=== PATIENT | female | born 1955 | race Caucasian/White ===

== ENCOUNTER 2016-07-05 19:58 | Observation (INO) | payer OTHER ==
--- NOTE | ~2016-07-05 | DS ---
Discharge Summary [facility] [address] [facility] [place]. [address] NAME: FATIMAH CAZARES : 59 STATUS : DIS IN PAT#: [id number] AGE: 61 ADM/REG DATE : 07/05/16 MR#: [id number] REPORT SERV DATE: 07/08/16 DICTATED BY: ZACH IZAGUIRRE DATE: 07/07/16 REPORT STATUS : Draft TRANSCRIBED BY: MODLola DATE: 07/07/16 ADMISSION DATE: 07/05/2016 DISCHARGE DATE: 07/07/2016 DISCHARGE DIAGNOSES: Includes: 1. TIA or transient ischemic attack with some left facial paresthesias. 2. Headaches. 3. Tobacco abuse. 4. Obstructive sleep apnea with current CPAP therapy nightly. 5. Hypertension. 6. Upper respiratory infection. 7. History of CVA. DISCHARGE MEDICATIONS: Aspirin 325 mg daily, Voltaren gel topically p.r.n. to affected areas, atenolol 25 mg daily, Lipitor 80 mg at bedtime, Wellbutrin XL 300 mg daily, vitamin B12 1000 mcg daily, Topamax 25 mg daily new prescription written for this, multivitamin tablet one daily, red yeast 1 capsule daily. HISTORY OF PRESENT ILLNESS: A pleasant 61-year-old female who presented with face numbness and headache at the [facility] Emergency Room. Please see initial H and P of Dr. Caio Foreman. The patient is admitted to the Hospitalist Service for further evaluation and treatment. CONSULTANTS DURING THIS ADMISSION: Include Neurology Services Dr. Willard Wheeler. PROCEDURES AND IMAGING DURING THIS ADMISSION: Include CT of the brain that was unremarkable. No acute intracranial hemorrhage or otherwise acute pathology. A carotid ultrasound showing no significant plaque within the carotid arteries, and no significant stenosis. MRI of the brain showing no evidence of acute infarction but nonspecific gliotic changes right and left centrum semiovale, most likely sales donor recruitment representative of small vessel ischemic events, microangiopathic leukoencephalopathy. An echocardiogram performed showed an ejection fraction of 55% to 60%, dilated left atrium, mild aortic valve regurgitation, mild mitral valve regurgitation. CONTINUATION OF HOSPITAL COURSE: The patient's symptoms of headache and paresthesias began to resolve by the following day. Her aspirin therapy was increased to 325 mg, her Lipitor was increased to 80 mg daily. She had the above described imaging, was seen and evaluated by Neurology Services. She was seen by Physical Therapy, Occupational Therapy, and Speech Therapy during this admission who did not recommend any acute PT needs at this time. Significant counseling was given on the need for tobacco cessation, and the patient was felt safe for discharge home on 07/07/2016 with the above medicines to follow up with her primary care in approximately 7-10 days. Questions were answered at bedside. She was in agreement with this plan going forward. Please note that greater than 30 minutes was spent on this discharge for medication teaching, followup planning, and further disposition. Discharge Summary [address] [address] NAME: FATIMAH CAZARES : 59 STATUS : DIS IN PAT#: [id number] AGE: 61 ADM/REG DATE : 07/05/16 MR#: [id number] REPORT SERV DATE: 07/08/16 DICTATED BY: ZACH IZAGUIRRE DATE: 07/07/16 REPORT STATUS : Draft TRANSCRIBED BY: PAMELA DATE: 07/07/16 ESTEBAN/PAMELA Zach Izaguirre NP / [id number] CC: Turner Araujo MD
--- NOTE | ~2016-07-05 | CN ---
Consultation Report [facility] [address] [place]. [address] NAME: FATIMAH CAZARES : 59 STATUS : ADM IN PAT#: [id number] AGE: 61 ADM/REG DATE : 07/05/16 MR#: [id number] REPORT SERV DATE: 07/06/16 DICTATED BY: VINCENZO WHEELER DATE: 07/05/16 REPORT STATUS : Draft TRANSCRIBED BY: MODL DATE: 07/05/16 [facility] NEUROLOGY CONSULTATION DATE OF CONSULTATION: REQUESTING PHYSICIAN: Dr. Cristobal in the [facility] Emergency Room. HISTORY OF PRESENT ILLNESS: This patient was called out as a Stroke Alert that was my joint decision with Dr. Cristobal after we initially discussed the case. She is a 61-year-old female with a past medical history significant for stroke, and vascular risk factors including hypertension, hyperlipidemia, and smoking. Her previous stroke was treated at [facility] in 08/2015 and left her with residual left facial numbness and left mouth droop. Interestingly, the family thinks there was some debate when she was in the hospital as to whether or not she had a stroke, and they cannot specifically tell me what the exact MRI findings were. She says that later her primary care physician told her that she definitely had a stroke. Symptoms relevant to her presentation this evening include worsening left facial numbness compared to baseline, headache, and nausea, all of which started at about 1800 hours on 07/05/2016. Accordingly, she came to the ER for evaluation. At the time that I spoke to her, family provided commentary that her left facial droop did not look any different than baseline. She also at that time mentioned that she had some scotomata consisting of a shimmery-type quality to her vision, this has improved. She thinks maybe the left facial numbness is also improved, but not all the way back to baseline. She does still have a headache. REVIEW OF SYSTEMS: A complete review of systems was obtained and is negative other than stated in the history of present illness. MEDICATIONS: Aspirin 81 mg, atenolol, atorvastatin, bupropion ER, B12, diclofenac topical gel, multivitamin, Bactrim. Incidentally, Bactrim is a new medication that she has just started on Sunday and she feels hot and flushed every time she takes it. ALLERGIES: NONE. FAMILY HISTORY: Positive for cardiovascular and cerebrovascular disease. SOCIAL HISTORY: She is a smoker. She works. No alcohol or drugs. PHYSICAL EXAMINATION: VITAL SIGNS: Blood pressure 108/63, heart rate 68, respiratory rate 19, oxygen saturation 97% on room air. GENERAL: In no acute distress. HEAD EARS, EYES, NOSE, AND THROAT: Normocephalic, atraumatic. Moist mucous membranes. NECK: Supple. Consultation Report [address] [place]. [address] NAME: FATIMAH CAZARES : 59 STATUS : ADM IN [facility]#: [id number] AGE: 61 ADM/REG DATE : 07/05/16 MR#: [id number] REPORT SERV DATE: 07/06/16 DICTATED BY: VINCENZO WHEELER DATE: 07/05/16 REPORT STATUS : Draft TRANSCRIBED BY: PAMELA DATE: 07/05/16 CARDIOVASCULAR: Regular rate and rhythm. PULMONARY: Clear to auscultation bilaterally. ABDOMEN: Soft, nontender, nondistended. Active bowel sounds. SKIN: No rashes or lesions. Joints, no effusions or deformities. NEUROLOGICAL: Alert and oriented x3. Speech is not dysarthric. Language is fluent. She follows commands well and is aware of current events. She can read words and name objects on the stroke card. Pupils equally round and reactive to light and accommodation. Visual duque full to confrontation bilaterally. Funduscopic exam within normal limits. Extraocular movements intact. Facial strength shows a slight left mouth droop at rest. Facial sensation notable for reduced sensation in the left V2 and V3 distributions. Auditory acuity is grossly intact. The palate elevates symmetrically. The tongue thrusts in the midline. Head turn and shoulder shrug are normal and symmetric. Strength is 5/5 distally and proximally in the bilateral upper and lower extremities with no pronator drift. Sensation is intact to light touch and symmetric proximally and distally in arms and legs with no sensory extinction to simultaneous stimuli. Cerebellar examination is within normal limits for tdybyw-ibgq-ddxkur and oovh-wo-yfia testing. Reflexes are normal throughout with negative Babinski. Gait testing was deferred. LABS AND IMAGING: CT of the head without contrast done on 07/05/2016, shows no acute intracranial abnormalities; again, this was dated on 07/05/2016, I have personally visualized and interpreted this film. ASSESSMENT: This is a 61-year-old female with a past medical history significant for stroke which caused symptoms that are very similar to those for which she presents today. She does have residual left facial numbness and left mouth droop from that previous stroke, and the only real difference is that she comments on today is some worse left facial numbness compared to baseline. Her NIH stroke scale is literally 2, but really only 1 point might even be considered as a new point on her scale. Her symptoms are improving, and it appears doubtful that she is actually experiencing an acute stroke at this time; however, this is not completely ruled out. I am more suspicious that this is a migraine with some reactivation of her stroke symptoms and possibly even some of the migrainous effect could be a side effect of the Bactrim that she is taking since it is also caused her to have some flushing symptoms for the past several days. Nonetheless, despite the fact that she is relatively excluded from tPA on the basis of rapidly improving symptoms and despite the fact that I would not give tPA for slight left facial numbness anyway, I do think she needs to be admitted to have a cerebrovascular analysis done. Perhaps, her records can be obtained from [facility] for comparison or to even use some of those studies in lieu of testing here if that is at all possible. PLAN: 1. Admit the patient to a telemetry bed. 2. Check MRI of the brain without contrast. 3. Tentatively please go ahead and make plans to obtain a carotid ultrasound, a transthoracic echocardiogram with bubble study. An A1c and a TSH and a fasting lipid panel of course if any useful studies from [facility] can be retrieved, then they could Consultation Report [address] [place]. [address] NAME: FATIMAH CAZARES : 59 STATUS : ADM IN [facility]#: [id number] AGE: 61 ADM/REG DATE : 07/05/16 MR#: [id number] REPORT SERV DATE: 07/06/16 DICTATED BY: VINCENZO WHEELER DATE: 07/05/16 REPORT STATUS : Draft TRANSCRIBED BY: MODL DATE: 07/05/[address] of a bubble study perhaps. 4. If the patient's MRI scan does show a stroke, I recommend changing her aspirin to Plavix 75 mg daily. 5. It does not appear that she has any need for physical, occupational, or speech therapy at this time. 6. Please treat her headache at your discretion because she has a history of stroke and could do not give her any Triptan or ergot medications. VINOD/PAMELA Vincenzo Wheeler MD / [id number] CC: Turner Araujo MD
--- NOTE | ~2016-07-05 | HP ---
History And Physical [id number] [place]. [address] NAME: FATIMAH CAZARES : 59 STATUS : ADM IN [facility]#: [id number] AGE: 61 ADM/REG DATE : 07/05/16 MR#: [id number] REPORT SERV DATE: 07/06/16 DICTATED BY: KIMBERLEE MCKENNA DATE: 07/05/16 REPORT STATUS : Draft TRANSCRIBED BY: MODLola DATE: 07/05/16 DATE OF ADMISSION: 07/05/2016 CHIEF COMPLAINT: Face numbness and headache approximately 6 o'clock today. HISTORY OF PRESENT ILLNESS: The patient is a 61-year-old female with past medical history of CVA or TIA, as the patient reports as mini stroke in the past that was seen at [place], who presents after having numbness and headache that occurred approximately 6 o' clock tonight. The patient was brought in from work and stroke alert was called in the emergency room. Symptoms have been constant, moderate severity. Does have headache pain that is nonradiating, associated with mild nausea and left-sided numbness. The patient has had prior TIA that has affected the left side with chronic left mouth droop from baseline. No shortness of breath, fever, or chills. No worsening symptoms, but no relieving symptoms. Symptoms are still currently present, but improving with headache improving with pain medications and symptoms of numbness still approximately at baseline, although this is more around the maxillary side. The patient has had recent sinus infection, which she has been on treatment, which she also reports is improving. REVIEW OF SYSTEMS: A 10-point review of systems negative except that noted in the HPI. PAST MEDICAL HISTORY: Sinus infection, TIA. SURGICAL HISTORY: Gallbladder. FAMILY HISTORY: Lung cancer in mother and father. SOCIAL HISTORY: , passed from sudden respiratory failure. Does have one pack per day smoking. No alcohol or illicits acutely. PHYSICAL EXAMINATION: VITAL SIGNS: The patient's blood pressure 97/40, temperature 97.6, blood pressure improved to 126/68 currently, pulse 61, respirations 16, O2 sats 94% on room air. GENERAL: The patient is in no acute distress. Calm, pleasant, mildly obese. EYES: No scleral icterus. EOMI. ENT: Nares patent. Tongue midline. Moist mucous membranes. Does have left mild facial droop; however, reports this is not new. RESPIRATORY: Clear to auscultation. No wheezes, rales, or rhonchi. CV: Regular rate. No rubs or gallops. No pedal edema. Cap refill less than 2 seconds. GI: Soft, nontender, and nondistended. Bowel sounds positive. : Deferred. MUSCULOSKELETAL: Moves all extremities x4. Symmetrical log deck tender. Symmetrical leg rise. SKIN: Warm and dry. LYMPH: No cervical or supraclavicular lymphadenopathy. NEURO: Does have left facial droop, but the patient reports this is at her baseline. Numbness up to maxillary ridge. Alert and oriented x3. Symmetrical smile, symmetrical History And Physical [address] [address] NAME: FATIMAH CAZARES : 59 STATUS : ADM IN [facility]#: [id number] AGE: 61 ADM/REG DATE : 07/05/16 MR#: [id number] REPORT SERV DATE: 07/06/16 DICTATED BY: KIMBERLEE MCKENNA DATE: 07/05/16 REPORT STATUS : Draft TRANSCRIBED BY: PAMELA DATE: 07/05/16 cheek expansion, symmetrical brow wrinkle. EOMI. No diplopia or nystagmus. Normal vocal trey. Symmetrical strength in hands. Lower extremities with equal rise. Sensation is grossly intact. PSYCH: Appropriate mood and affect. ALLERGIES: PENICILLIN. HOME MEDICATIONS: Aspirin, atenolol, Lipitor, Wellbutrin, vitamin B, Voltaren, multivitamin, red yeast, Bactrim, and steroid injection. EKG: Sinus bradycardia, rate of 58, QTc 451. PERTINENT LABS: BMP grossly within normal limits, some mildly elevated glucose at 115. Troponin negative. Stroke CT protocol, unremarkable. Noncontrast head CT, left maxillary sinus disease. No acute hemorrhage. CBC, WBC 6.7, H and H 13.3 and 40.3, platelets 133, INR 1.1. ASSESSMENT: 1. Transient ischemic attack. 2. Headache. 3. Tobacco use. 4. Obstructive sleep apnea. PLAN: 1. For TIA with CVA history, stroke protocol initiated in the emergency room. Evaluated by Neurology. We will have MRI head and ultrasound carotids. The patient does have history of murmur, which she is followed by Dr. Carr. We will additionally order echo with bubble study to evaluate. She does have old changes with facial droop and new changes with increased numbness up to maxillary ridge, but overall symptoms have improved. Does have minimal speech and communication deficit. Headache. P.r.n.'s. 2. Hypertension. Continue beta-jairo with holding parameters. 3. Tobacco use one pack per day. Nicotine patch and counseled for cessation. 4. INCK. CPAP. The patient's home setting is at . All questions answered with the patient and family at bedside. DISPOSITION: Pending results from above. DDN/DONALDOL Kimberlee Mckenna MD / [id number] History And Physical [address] [address] NAME: FATIMAH CAZARES : 59 STATUS : ADM IN [facility]#: [id number] AGE: 61 ADM/REG DATE : 07/05/16 MR#: [id number] REPORT SERV DATE: 07/06/16 DICTATED BY: KIMBERLEE MCKENNA DATE: 07/05/16 REPORT STATUS : Draft TRANSCRIBED BY: PAMELA DATE: 07/05/16 CC: Turner Araujo MD
[2016-07-05 20:32] LABS: BASOPHILS 0.4 %; BASOPHILS ABSOLUTE 0.03 10/3/uL (0.0-0.16); EOSINOPHILS 1.3 %; EOSINOPHILS ABSOLUTE 0.09 10/3/uL (0.0-0.53); ER CBC TAT 0 Hrs 05 Mins; HEMATOCRIT 40.3 % (36.0-48.0); HEMOGLOBIN 13.3 g/dL (12.0-16.0); IMMATURE GRANULOCYTES 0.7 %; IMMATURE GRANULOCYTES ABSOLUTE 0.05 10/3/uL (0.0-0.11); LYMPHOCYTES 17.5 %; LYMPHOCYTES ABSOLUTE 1.17 10/3/uL (0.67-4.30); MEAN CORPUSCULAR HEMOGLOB 30.3 pg (26.0-34.0); MEAN CORPUSCULAR VOLUME 91.8 fL (80-100); MEAN PLATELET VOLUME 10.8 fL (9.2-13.0); MONOCYTES 8.4 %; MONOCYTES ABSOLUTE 0.56 10/3/uL (0.21-1.20); NEUTROPHILS 71.7 %; PLATELET COUNT 133 10/3/uL (150-400); RBC DISTRIBUTION WIDTH 13.6 % (12.0-16.0); RED CELL COUNT 4.39 10/6/uL (4.0-5.6); WHITE BLOOD CELLS 6.7 10/3/uL (4.5-10.5)
[2016-07-05 20:33] LABS: MANUAL DIFF NO %
[2016-07-05 20:38] LABS: INTERNATIONAL NORMAL RATI 1.1 UNITS (-); PROTIME (NOT ORD) 14.2 SEC (12.0-14.5)
[2016-07-05 20:39] LABS: PARTIAL THROMBO TIME 29.5 SEC (22.5-37.2)
[2016-07-05 20:47] LABS: BUN (BLOOD UREA NITROGEN) 18 MG/DL (6-23); CALCIUM, SERUM 8.8 MG/DL (8.5-10.4); CHEST PAIN PROFILE TAT 0 Hrs 20 Mins; CHLORIDE, SERUM 104 MMOL/L (96-112); CO2 (CARBON DIOXIDE) 26 MMOL/L (24-34); CREATININE 0.95 MG/DL (0.55-1.02); GFR AFRICAN AMERICAN 76 ML/MIN (>=60); GFR NON AFRICAN AMERICAN 66 ML/MIN (>=60); GLUCOSE, SERUM 115 MG/DL (60-99); POTASSIUM, SERUM 4.1 MMOL/L (3.5-5.3); SODIUM, SERUM 138 MMOL/L (135-148); TROPONIN I <0.02 NG/ML (<0.05)
[2016-07-05] MEDS ORDERED: ASAB PO (21:21)
[2016-07-05] MEDS ORDERED: WELLXL300 PO (21:24)
[2016-07-05] MEDS ORDERED: BACDS PO (21:24)
[2016-07-05] MEDS ORDERED: LIPITOR40 PO (21:24)
[2016-07-05] MEDS ORDERED: ATEN25 PO (21:24)
[2016-07-05] MEDS ORDERED: VOLTAREN1 % TOP (21:26)
[2016-07-05] MEDS ORDERED: RED YEAS1 PO (21:27)
[2016-07-05] MEDS ORDERED: CYANO1000T PO (21:27)
[2016-07-05] MEDS ORDERED: MULTIVIT/MIN PO (21:27)
[2016-07-05] MEDS ORDERED: STEROID INJECTION IM (21:28)
[2016-07-06 07:23] LABS: BASOPHILS 0.3 %; BASOPHILS ABSOLUTE 0.02 10/3/uL (0.0-0.16); EOSINOPHILS 1.8 %; EOSINOPHILS ABSOLUTE 0.12 10/3/uL (0.0-0.53); HEMATOCRIT 41.5 % (36.0-48.0); HEMOGLOBIN 13.5 g/dL (12.0-16.0); IMMATURE GRANULOCYTES 0.6 %; IMMATURE GRANULOCYTES ABSOLUTE 0.04 10/3/uL (0.0-0.11); LYMPHOCYTES 26.3 %; LYMPHOCYTES ABSOLUTE 1.72 10/3/uL (0.67-4.30); MANUAL DIFF NO %; MEAN CORPUS HGB CONC 32.5 g/dL (32.0-36.0); MEAN CORPUSCULAR VOLUME 92.2 fL (80-100); MEAN PLATELET VOLUME 11.1 fL (9.2-13.0); MONOCYTES 7.7 %; NEUTROPHILS 63.3 %; NEUTROPHILS ABSOLUTE 4.13 10/3/uL (2.02-8.40); PLATELET COUNT 139 10/3/uL (150-400); RBC DISTRIBUTION WIDTH 13.8 % (12.0-16.0); WHITE BLOOD CELLS 6.5 10/3/uL (4.5-10.5)
[2016-07-06 07:32] LABS: INTERNATIONAL NORMAL RATI 1.1 UNITS (-); PARTIAL THROMBO TIME 33.5 SEC (22.5-37.2); PROTIME (NOT ORD) 14.3 SEC (12.0-14.5)
[2016-07-06 07:40] LABS: CHOL/HDL RATIO(NOT ORDER) 3.3 (0-5); CHOLESTEROL 156 MG/DL (< 200); CPK 117 U/L (0-200); HDL CHOLESTEROL 48 MG/DL (> 49); LDL CHOLESTEROL 84 MG/DL (< 130); NON-HDL CHOLESTEROL 108 MG/DL (< 160); TRIGLYCERIDE 121 MG/DL (< 150); TROPONIN I <0.02 NG/ML (<0.05); ULTRASENSITIVE TSH 0.444 MCIU/ML (0.358-3.740)
[2016-07-06 07:41] LABS: CK-MB 2.6 NG/ML
[2016-07-06 16:17] LABS: CPK 106 U/L (0-200); TROPONIN I <0.02 NG/ML (<0.05)
[2016-07-06 16:18] LABS: CK-MB 2.1 NG/ML
[2016-07-06 22:10] LABS: CPK 99 U/L (0-200); TROPONIN I <0.02 NG/ML (<0.05)
[2016-07-06 22:11] LABS: CK-MB 1.8 NG/ML
[2016-07-07] MEDS ORDERED: ASA5GR PO (13:31)
[2016-07-07] MEDS ORDERED: TOPAMAX25 PO (13:48)
== END 2016-07-07 16:34 | disposition home or self-care (01) ==
LOC: ER 19:58 → 1SO 23:39
PROVIDERS: Emergency Medicine; Internal Medicine
DX: I63.9 Cerebral infarction, unspecified (principal); J92.9 Pleural plaque without asbestos; I34.0 Nonrheumatic mitral (valve) insufficiency
CPT/HCPCS: 36415; 70450; 70551-52; 71010; 80048; 80061; 82550; 82553; 82962; 83036; 83735; 84443; 84484; 84540; 85025; 85610; 85730; 86850; 86900; 86901; 90686; 93005; 93306; 93880; 94660; 96372; 96374; 96375; 96376; 99285; A9270-GY; G0008; G0378; J1170; J2405